=== PATIENT | male | born 1955 | race Caucasian/White ===

== ENCOUNTER 2020-07-06 11:33 | Observation (INO) | payer MEDICARE ==
[~2020-07-06] VITALS: Wt 109.1 kg
[2020-07-06 12:10] LABS: BASO % 0.2 % (0.0-2.0); EOS % 0.4 % (0-4.0); GRAN # 7.1 (1.4-6.5); GRAN % 64.1 % (42.2-75.2); HEMATOCRIT 42.3 % (42.0-52.0); HEMOGLOBIN 14.2 g/dl (13.5-18.0); LYMPH # 2.6 (1.2-3.4); LYMPH % 23.7 % (20.0-51.0); MEAN CELL VOLUME 93 fl (80.0-100.0); MEAN CORPUSCULAR HEMOGLOBIN 31 pg (27.0-31.0); MEAN CORPUSCULAR HGB CONC 34 g/dl (33.0-37.0); MEAN PLATELET VOLUME 10.3 fl (7.4-10.4); MONO # 1.2 (0.1-0.6); MONO % 10.5 % (1.7-9.3); PLATELET COUNT 163 K/mm3 (130-400); RED BLOOD COUNT 4.56 M/mm3 (4.20-5.60); REDCELL DISTRIBUTION WIDTH-CV 14.2 % (11.5-14.5)
[2020-07-06 12:28] LABS: ALBUMIN 4.9 gm/dL (3.5-5.0); CALCIUM 10.1 mg/dL (8.4-10.2); CREATININE, serum 0.92 (0.66-1.25); POTASSIUM 4.4 mmol/L (3.4-5.0); TOTAL PROTEIN 8.2 gm/dL (6.4-8.2)
[2020-07-06 15:00] LABS: ALCOHOL(ethanol),MEDICAL < 10 mg/dL
[2020-07-06 15:22] LABS: TROPONIN-I < 0.012 ng/mL (0.000-0.035)
--- NOTE | 2020-07-06 18:44 | NUR ---
Pt arrived to unit, room 351. Report given to HEATH Laws.
[2020-07-06 20:02] VITALS: BP 139/87; PULSE 80; TEMP 97.9
[2020-07-06] MEDS ORDERED: TOPROL XL100 MG PO (20:43)
[2020-07-06 21:20] VITALS: BP 137/89; PULSE 78; TEMP 98
--- NOTE | 2020-07-06 21:21 | NUR ---
Patient came to room 351 from ED around 1845 pm. Patient A/Ox4. Patient sitting up in bed and watching TV upon enter the room. Oriented patient to the room, call light, phone number, bathroom, meal time, and visiting hours, etc. Patient c/o abdominal pain 11/02. PRN Oxycodone given at 20:19 pm. Right EJ site C/D/I. Very difficult to flush with 10ml NS. Called data warehouse administrator and reported concerns. Call light within reach. Will continue to monitor.
[2020-07-07 00:27] VITALS: BP 115/74; PULSE 77; TEMP 98.2
--- NOTE | 2020-07-07 01:08 | NUR ---
heavy equipment supervisor came and assessed right EJ site. Noticed patient's right EJ catheter tip was half inch out of access site and was kinked. Unable to flush with NS. Called Hospitalist ZURI Carrasco and reported issue. Order received to discontinue right EJ. PRN Dilaudid IM injection given for abdominal pain at 22:09 pm. Call light within reach. Will continue to monitor.
[2020-07-07 04:00] VITALS: BP 117/66; PULSE 73; TEMP 98
[2020-07-07 07:08] LABS: ALBUMIN 4.4 gm/dL (3.5-5.0); BILIRUBIN,TOTAL 1.6 mg/dL (0.0-1.0); CALCIUM 9.2 mg/dL (8.4-10.2); CREATININE, serum 0.87 (0.66-1.25); POTASSIUM 4.2 mmol/L (3.4-5.0); TOTAL PROTEIN 7.2 gm/dL (6.4-8.2)
[2020-07-07 07:36] VITALS: BP 135/81; PULSE 72; TEMP 98.2
[2020-07-07 07:51] LABS: BASO % 0.6 % (0.0-2.0); EOS # 0.1 (0.0-0.7); GRAN # 3.8 (1.4-6.5); GRAN % 55.3 % (42.2-75.2); HEMATOCRIT 40.4 % (42.0-52.0); HEMOGLOBIN 13.5 g/dl (13.5-18.0); LYMPH # 2.2 (1.2-3.4); LYMPH % 32.5 % (20.0-51.0); MEAN CELL VOLUME 95 fl (80.0-100.0); MEAN CORPUSCULAR HEMOGLOBIN 32 pg (27.0-31.0); MEAN CORPUSCULAR HGB CONC 33 g/dl (33.0-37.0); MONO # 0.7 (0.1-0.6); MONO % 9.6 % (1.7-9.3); PLATELET COUNT 129 K/mm3 (130-400); RED BLOOD COUNT 4.27 M/mm3 (4.20-5.60); REDCELL DISTRIBUTION WIDTH-CV 14.4 % (11.5-14.5)
--- NOTE | 2020-07-07 08:02 | NUR ---
Pt assessment complete. Pt is laying in bed upon entry, he is A/O x4. His breathing is even and unlabored. Reports mild nausea. Did report a loose stool this am, but has improved from before. Pt states he feels much better. IV to RAC started, pt hopeful to avoid PICC line. No needs at this time. Call light within reach.
[2020-07-07] MEDS ORDERED: ROXICODONE 55 MG/TAB PO (10:02)
[2020-07-07] MEDS ORDERED: ZOFRAN ODT4 MG PO (10:03)
--- NOTE | 2020-07-07 11:35 | NUR ---
Discharge paperwork and instructions reviewed with patient, all questions answered at this time. IV to RAC dc'd catheter tip intact. Pt wheeled out of facility at this time.
== END 2020-07-07 11:36 | disposition home or self-care (01) ==
LOC: COL.ER 11:33 → MEDICAL 15:55
PROVIDERS: Physician Assistant
DX: K85.90 Acute pancreatitis without necrosis or infection, unspecified (principal); K86.1 Other chronic pancreatitis; R73.01 Impaired fasting glucose; Z79.84 Long term (current) use of oral hypoglycemic drugs
CPT/HCPCS: G0378; J1170; J1630; J1650; J1885; J2550; J7030; J7120; Q9967